=== PATIENT | female | born 1985 | race African-American/Black ===

== ENCOUNTER 2025-01-30 11:09 | Inpatient (IN) | payer MEDICAID, OTHER ==
[~2025-01-30] VITALS: Ht 149.9 cm; Wt 58.7 kg
[2025-01-30] MEDS: HYDROmorphone HCL 2 MG/ML VL/or syr IV ONE (11:45)
[2025-01-30] MEDS: SODIUM CHLORIDE 0.9% 1,000 ML IV ONE ×4 (11:46→16:26)
[2025-01-30] MEDS: LORazepam 2MG/ML-1ML VIAL IV ONE (11:46)
--- NOTE | 2025-01-30 11:46 | ED.PDOC ---
HPI (NEURO) HPI Comments 39 y/o F, with PMHx of epilepsy presents to the ED for CC of s/p seizure. Patient states, that she had x2 seizure episode back to back today (01/30/25). Patient reports, that she has lupus and is currently not on any medication; endorses seizure are common when having a flare-up. Patient denies blurred vision, oral trauma, or incontinence. Patient relays, she is compliant with Keppra bid. No other symptoms or modifying factors present at this time Chief Complaint: Seizure Time Seen by MD: 11:30 Primary Care Provider: NONE Reviewed Notes: Nurses Notes, Medications, Allergies Information Source: Patient Mode of Arrival: Ambulatory Severity: Moderate Dizziness/Weakness Severity: Does not affect activitie Headache Severity: None Timing: Minutes Duration: Minutes Prehospital treatment: None Seizure Quality: Mulitple Episodes Onset: At rest Circumstances: Spontaneous Symptoms: None Before: Normal During: Awake After: Normal Mentation History of: Seizure Disorder Modifying factors: Nothing Associated Signs and Symptoms: None Past Medical History Past Medical History (Other): Epilepsy 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 all REVIVAL CLERK Hx Family History Family History: Unknown Social History Smoker: Non-Smoker Alcohol: Denies ETOH Use Drugs: Denies Drug Use Lives In: Home Constitutional: denies: chills, diaphoresis, fatigue, fever, malaise, sweats, weakness, others EENTM: denies: blurred vision, double vision, ear bleeding, ear discharge, ear drainage, ear pain, ear ringing, eye pain, eye redness, hearing loss, mouth pain, mouth swelling, nasal discharge, nose bleeding, nose congestion, nose pain, photophobia, tearing, throat pain, throat swelling, voice changes, others Respiratory: denies: cough, hemoptysis, orthopnea, SOB at rest, shortness of breath, SOB with excertion, stridor, wheezing, others Cardiovascular: denies: chest pain, dizzy spells, diaphoresis, Dyspnea on exertion, edema, irregular heart beat, left arm pain, lightheadedness, palpitations, PND, syncope, others Gastrointestinal: denies: abdomen distended, abdominal pain, blood streaked bowels, constipated, diarrhea, dysphagia, difficulty swallowing, hematemesis, melena, nausea, poor appetite, poor fluid intake, rectal bleeding, rectal pain, vomiting, others Genitourinary: denies: abnormal vagina bleeding, burning, dyspareunia, dysuria, flank pain, frequency, hematuria, incontinence, pain, , vagina discharge, urgency, others Neurological: denies: dizziness, fainting, headache, left sided numbness, left sided weakness, numbness, paresthesia, pre-existing deficit, right sided numbness, right sided weakness, seizure, speech problems, tingling, tremors, weakness, others Musculoskeletal: reports: others (body pain); denies: back pain, gout, joint pain, joint swelling, muscle pain, muscle stiffness, neck pain Integumetry: denies: bruises, change in color, change in hair/nails, dryness, laceration, lesions, lumps, rash, wounds, others Allergic/Immunocompromised: denies: Difficulty Healing, Frequent Infections, Hives, Itching, others Hematologic/Lymphatic: denies: anemia, blood clots, easy bleeding, easy bruising, swollen glands, others Endocrine: denies: excessive hunger, excessive sweating, excessive thirst, excessive urination, flushing, intolerance to cold, intolerance to heat, unexplained weight gain, unexplained weight loss, others Psychiatric: denies: anxiety, bipolar disorder, depression, hopeless, panic di sorder, schizophrenia, sleepless, suicidal, others All Other Systems: Reviewed and Negative Physical Exam General Appearance: Moderate Distress HEENT: Normal ENT Inspection, Pharynx Normal, TMs Normal Neck: Full Range of Motion, Non-Tender, Normal, Normal Inspection Respiratory: Chest Non-Tender, Lungs Clear, No Accessory Muscle Use, No Respiratory Distress, Normal Breath Sounds Cardiovascular: No Edema, No JVD, No Murmur, No Gallop, Normal Peripheral Pulses, Regular Rate/Rhythm Breast Exam: Deferred Gastrointestinal: No Organomegaly, Non Tender, No Pulsatile Mass, Normal Bowel Sounds, Soft Genitalia: Deferred Pelvic: Deferred Rectal: Deferred Extremities: No calf tenderness, Normal capillary refill, Normal inspection, Normal range of motion, Non-tender, No pedal edema Musculoskeletal : Apperance: Normal Neurologic: Alert, logistics operations manager II-XII nml as Tested, No Motor Deficits, Normal Affect, Normal Mood, No Sensory Deficits Cerebellar Function: Normal Reflexes: Normal Skin: Dry, Normal Color, Warm Peripheral Pulses: 3+ Radial (R), 3+ Radial (L) Lymphatic: No Adenopathy Was a procedure done? Was a procedure done?: No Differential Diagnosis (SZ) Seizure: Psychogenic Seizure, Closed Head Injury, CVA/TIA, Epilepsy-Break Through, Epilepsy-Status X-Ray, Labs, Meds, VS Vital Signs Date Time Temp Pulse Resp B/P (MAP) Pulse Ox O2 Delivery O2 Flow Rate FiO2 01/30/25 13:15 Room Air* 0 21 01/30/25 13:15 97.9 92 16 147/103 (118) 100 97.9 01/30/25 11:45 92 16 147/103 01/30/25 11:15 98.8 90 16 124/74 (91) 100 98.8 Lab Test 01/30/25 12:05 01/30/25 11:26 Range/Units Reticulocyte Count (auto) 2.30 H 0.5-1.5 % Urine Color Light-yellow Yellow Urine Clarity Clear Clear Urine pH 6.5 5.0-9.0 Urine Specific [place] 1.021 1.001-1.035 Urine Protein Negative Negative Urine Ketones Negative Negative Urine Blood Negative Negative /uL Urine Nitrite Negative Negative Urine Bilirubin Negative Negative Urine Urobilinogen Normal Negative mg/dL Urine Leukocyte Esterase 3+ Negative /uL Urine RBC 7 0 - 4 /hpf Urine Microscopic WBC 40 H 0-5 /HPF Urine Squamous Epithelial Cells Few <5 /hpf Urine Bacteria Few H None Seen /hpf Urine Glucose 4+ H Normal mg/dL Current Medications Medications (Trade) Dose Ordered Sig/Teresita Route Start Time Stop Time Status Last Admin Hydromorphone HCl (Dilaudid Injection) 1 mg ONCE ONCE IV 01/30/25 11:45 01/30/25 11:46 DC 01/30/25 11:45 Lorazepam (Ativan Inj) 1 mg ONCE ONCE IV 01/30/25 11:45 01/30/25 11:46 DC 01/30/25 11:46 Sodium Chloride 1,000 ml @ 1,000 mls/hr Q1H ONCE IV 01/30/25 11:45 01/30/25 12:44 DC 01/30/25 11:46 Sodium Chloride 1,000 ml @ 1,000 mls/hr Q1H ONCE IV 01/30/25 12:30 01/30/25 13:29 DC 01/30/25 12:49 Patient alert. Complaining of generalized body pains. Vitals stable. Answering questions. Ambulating. Establish intravenous access. Was given fluids. Was given Ativan. Heart rate within normal limits. Saturation pristine on room air. No sign of any lupus. CT of the head was not ordered because her neurological examination was pristine. Good muscle strength. No sign of any trauma. Explained to the patient. Was told to follow up with her primary care physician. Was told to come back if there is any problem. Time of 1ST Reevaluation: 12:00 Reevaluation 1ST: Unchanged Patient Education/Counseling: Diagnosis, Treatment Family Education/Counseling: No Family Present Departure 1 Departure Time of Disposition: 12:12 Impression: Primary Impression: Sickle cell crisis Additional Impression: Dehydration Disposition: ADMITTED INPATIENT Admit to: Med Surg Condition: Guarded Critical Care Note Critical Care Time?: No Stability Stability form required: No Heart Score Heart Score: Heart Score Response (Comments) Value History N/A 0 EKG N/A 0 Age N/A 0 Risk Factors N/A 0 Troponin N/A 0 Total 0 I personally scribed for GUZMAN SILVA MD ([email or web address]) on 01/30/25 at 11:46. Electronically submitted by Karissa Monterroso ([email or web address]). GUZMAN SILVA MD January 30, 2025 11:46
[2025-01-30] MEDS: ONDANSETRON HCL 4 MG/2 ML VIAL IV ONE ×2 (11:49→16:19)
[2025-01-30 15:00] LABS: Urine Bacteria FEW /hpf (None Seen); Urine Blood Negative /uL (Negative); Urine Clarity Clear (Clear); Urine Color Light-Yellow (Yellow); Urine Protein, UAD Negative (Negative); Urine Specific Gravity 1.021 (1.001-1.035); Urine Squamous Epithelial Cell FEW /hpf (<5); Urine Urobilinogen Normal (Negative); Urine WBC 40 /HPF (0-5); Urine pH 6.5 (5.0-9.0)
[2025-01-30] MEDS ORDERED: LORazepam 2MG/ML-1ML VIAL IV PRN (16:00)
[2025-01-30] MEDS: SODIUM CHLORIDE 0.9% 1,000 ML IV SCH (16:00)
[2025-01-30] MEDS ORDERED: ACETAMINOPHEN 325 MG TAB PO PRN (16:00)
[2025-01-30] MEDS ORDERED: DOCUSATE SOD 100 MG CAP PO PRN (16:00)
[2025-01-30 16:09] LABS: Basophils # (auto) 0.1 10 ^3/uL (0-0.2); Basophils % (auto) 0.8 % (0.0-2.0); Eosinophils # (auto) 0.1 10 ^3/uL (0-0.8); Eosinophils % (auto) 0.7 % (0.0-7.0); Hematocrit 24.9 % (36.0-46.0); Hemoglobin 7.5 g/dL (12.2-16.2); Lymphocytes # (auto) 2.6 10 ^3/uL (0.4-5.4); Lymphocytes % (auto) 27.6 % (10.0-50.0); Mean Corpuscular Hemoglobin 21.6 pg (28.0-32.0); Mean Corpuscular Hgb Conc. 30.1 g/dL (32.0-36.0); Mean Corpuscular Volume 71.8 fL (80.0-100.0); Monocytes # (auto) 0.5 10 ^3/uL (0-1.3); Monocytes % (auto) 5.8 % (0.0-12.0); Neutrophils % (auto) 65.1 % (37.0-80.0); Nucleated Red Blood Cells % 0.1 %; Platelet Count (auto) 288 10^3/uL (140-450); Red Blood Cells 3.46 10^6/uL (4.0-5.20); Red Cell Distribution Width 19.6 % (11.8-14.3); White Blood Cell 9.3 10^3/uL (4.4-10.8)
[2025-01-30 16:19] LABS: Potassium 3.8 mmol/L (3.5-5.1); Sodium 143 mmol/L (136-145)
[2025-01-30 16:20] LABS: Anion Gap 8 (5-15); Carbon Dioxide 21 mmol/L (20-31)
[2025-01-30 16:22] LABS: Calcium 8.6 mg/dL (8.7-10.4); Chloride 114 mmol/L (98-107)
[2025-01-30 16:25] LABS: BUN/Creatinine Ratio 11.9 (10.0-20.0); Blood Urea Nitrogen 7 mg/dL (9-23); Glucose 201 mg/dL (74-106)
[2025-01-30] MEDS: MORPHINE SULFATE 4 MG/ML SYR/VIAL IV ONE (16:25)
--- NOTE | 2025-01-30 17:36 | DVHHP2 ---
History of Present Illness Reason for Visit: Seizure disorder History of Present Illness The patient is a 39-year-old female with past medical history of seizures and lupus presented to [facility] ED for evaluation of seizures activity. Patient reports that she had seizure episode 2 times back to back today, she is not on lupus medication at this time, admit seizure are common when having a flare up. Patient was seen and evaluated in the ED, laboratory data shows WBC 9.3, hemoglobin 7.5, hematocrit 24.9, platelets 288, Retic count 2.30, sodium 143, potassium 3.8, BUN 7, creatinine 0.59, glucose 201, calcium 8.6, urinalysis positive for urinary tract infection, blood pressure 147/93, heart rate 92, temperature 97.9 F, O2 saturation 99% on room air. Patient was started on IV antibiotic regimen Rocephin, please see medication orders section in the computer. On my assessment, patient denied chest pain, no headache, no dizziness, no diaphoresis, no seizures activity at this moment, no shortness of breath, no nausea, no vomiting, no fever, no chills. Patient was admitted for further evaluation and medical management. Past Medical History Epilepsy and lupus Past Surgical History Family History Reviewed, noncontributory to the management of this case. Past Social History The patient lives at home, denies smoking, alcohol or illicit drugs abuse. Review of Systems Constitutional: Yes: Weakness; No: Fever, Chills, Sweats, Malaise, Other Eyes: No: Pain, Vision change, Conjunctivae inflammation, Eyelid inflammation, Other, Redness ENT: No: Ear pain, Ear discharge, Nose pain, Nose discharge, Nose congestion, Mouth pain, Mouth swelling, Throat pain, Throat swelling, Other Respiratory: No: Cough, Dry, Shortness of breath, SOB with excertion, Wheezing, Hemoptysis, Pleuritic Pain, Sputum, Wheezing, Other Cardiovascular: No: Chest Pain, Palpitations, Orthopnea, Paroxysmal Noc. Dyspnea, Edema, Lt Headedness, Other Gastrointestinal: No: Nausea, Vomiting, Abdominal Pain, Diarrhea, Constipation, Melena, Hematochezia, Other Genitourinary: No Dysuria, No Frequency, No Incontinence, No Hematuria, No Retention, No Other Musculoskeletal: other (Body pain); No: neck pain, shoulder pain, arm pain, back pain, hand pain, leg pain, foot pain Skin: No: Rash, Lesions, Jaundice, Bruising, Other Neurological: Seizures; No: Weakness, Numbness, Incoordination, Change in speech, Confusion, Other Allergies: Coded Allergies: Penicillins (Verified Allergy, Intermediate, 01/30/25) Medications Current Medications Medications Dose Ordered Sig/Teresita Route Start Time Stop Time Status Last Admin Dose Admin Ceftriaxone Sodium 50 ml @ 100 mls/hr DAILY@09 IV 01/31/25 09:00 Lorazepam 1 mg Q2HP PRN IV 01/30/25 16:00 Sodium Chloride 1,000 ml @ 60 mls/hr [id number] IV 01/30/25 16:00 Acetaminophen/ Hydrocodone Bitart 1 tab Q4HP PRN PO 01/30/25 16:00 Ondansetron HCl 4 mg Q4HP PRN IV 01/30/25 16:00 Docusate Sodium 100 mg BIDPRN PRN PO 01/30/25 16:00 Acetaminophen 650 mg Q6HP PRN PO 01/30/25 16:00 Exam Vital Signs Vital Signs Date Time Temp Pulse Resp B/P (MAP) Pulse Ox O2 Delivery O2 Flow Rate FiO2 01/30/25 16:25 85 16 138/102 01/30/25 13:15 Room Air* 0 21 01/30/25 13:15 97.9 100 97.9 General Appearance: Alert, Oriented X3, Cooperative, No acute distress HEENT: Atraumatic, PERRLA, EOMI, Mucous membr. moist/pink Respiratory: Clear to auscultation, Normal air movement Cardiovascular: Regular rate, Normal S1, Normal S2, No murmurs Abdominal: Normal bowel sounds, Soft, No tenderness, No hepatospenomegaly, No masses Extremities: No clubbing, No cyanosis, No edema, Normal pulses, No tenderness/swelling Skin: No rashes, No breakdown, No significant lesion Neuro: Normal gait, Normal speech, Strength at 5/5 X4 ext, Normal tone, Sensation intact, Cranial nerves 3-12 NL, Reflexes 2+, Other (Generalized weakness) Psych/Mental Status: Mental status NL, Mood NL Labs/Xrays Labs Test 01/30/25 15:56 01/30/25 12:05 01/30/25 11:26 Range/Units White Blood Count 9.3 4.4-10.8 10^3/uL Red Blood Count 3.46 L 4.0-5.20 10^6/uL Hemoglobin 7.5 L 12.2-16.2 g/dL Hematocrit 24.9 L 36.0-46.0 % Mean Corpuscular Volume 71.8 L 80.0-100.0 fL Mean Corpuscular Hemoglobin 21.6 L 28.0-32.0 pg Mean Corpuscular Hemoglobin Concent 30.1 L 32.0-36.0 g/dL Red Cell Distribution Width 19.6 H 11.8-14.3 % Platelet Count 288 140-450 10^3/uL Mean Platelet Volume 8.4 6.9-10.8 fL Neutrophils (%) (Auto) 65.1 37.0-80.0 % Lymphocytes (%) (Auto) 27.6 10.0-50.0 % Monocytes (%) (Auto) 5.8 0.0-12.0 % Eosinophils (%) (Auto) 0.7 0.0-7.0 % Basophils (%) (Auto) 0.8 0.0-2.0 % Neutrophils # (Auto) 6.0 1.6-8.6 10 ^3/uL Lymphocytes # (Auto) 2.6 0.4-5.4 10 ^3/uL Monocytes # (Auto) 0.5 0-1.3 10 ^3/uL Eosinophils # (Auto) 0.1 0-0.8 10 ^3/uL Basophils # (Auto) 0.1 0-0.2 10 ^3/uL Nucleated Red Blood Cells 0.1 % Sodium Level 143 136-145 mmol/L Potassium Level 3.8 3.5-5.1 mmol/L Chloride Level 114 H 98-107 mmol/L Carbon Dioxide Level 21 20-31 mmol/L Anion Gap 8 5-15 Blood Urea Nitrogen 7 L 9-23 mg/dL Creatinine 0.59 0.550-1.02 mg/dL Glomerular Filtration Rate Calc 117 >90 mL/min BUN/Creatinine Ratio 11.9 10.0-20.0 Serum Glucose 201 H 74-106 mg/dL Calcium Level 8.6 L 8.7-10.4 mg/dL Reticulocyte Count (auto) 2.30 H 0.5-1.5 % Urine Color Light-yellow Yellow Urine Clarity Clear Clear Urine pH 6.5 5.0-9.0 Urine Specific [place] 1.021 1.001-1.035 Urine Protein Negative Negative Urine Ketones Negative Negative Urine Blood Negative Negative /uL Urine Nitrite Negative Negative Urine Bilirubin Negative Negative Urine Urobilinogen Normal Negative mg/dL Urine Leukocyte Esterase 3+ Negative /uL Urine RBC 7 0 - 4 /hpf Urine Microscopic WBC 40 H 0-5 /HPF Urine Squamous Epithelial Cells Few <5 /hpf Urine Bacteria Few H None Seen /hpf Urine Glucose 4+ H Normal mg/dL Head CT results pending Assessment/Plan Assessment/Plan Seizure disorder Urinary tract infection Anemia, unspecified Hyperglycemia Generalized weakness Plan 1. Admit to telemetry unit 2. Breathing treatment 3. Pain control management 4. IV antibiotic management 5. Management of fluids and electrolytes 6. Consultation for neurology 7. Diagnostic test-head CT 8. DVT prophylaxis on SCDs 9. Repeat labs CBC, CMP in a.m. 10. Home medication reviewed and reconciled 11. Continue with current medical management 12. Treatment plan discussed with patient and RN. Patient verbalized understanding. Plan discussed with: Patient, Other (RN) My Orders Orders - CASSIDY ZAVALA DNP Procedure Category Date Status Time Urine Bacterial GISELLE 01/30/25 Logged Culture 15:55 Ceftriaxone 1gm/50ml PHA 01/31/25 In Process D5w (Rocephin) 09:00 Lorazepam 2mg/Ml Inj PHA 01/30/25 In Process (Ativan Inj) 16:00 Allergies SINGH 01/30/25 In Process 15:55 Code Status CODE 01/30/25 Transmitted 15:55 2 Gm Sodium Diet DIET 01/30/25 Transmitted Dinner Sodium Chloride 0.9% PHA 01/30/25 In Process 16:00 Oxygen Per Hour RT 01/30/25 Transmitted 15:55 Hydrocodone-Acet PHA 01/30/25 In Process 5/325mg Tab ([place] 16:00 Ondansetron Hcl PHA 01/30/25 In Process (Zofran) 16:00 Docusate Sodium PHA 01/30/25 In Process Capsule (Colace 16:00 Fall Risk Precautions SINGH 01/30/[address] 15:55 Complete Blood Count LAB 01/31/25 Verified 04:00 Comprehensive LAB 01/31/25 Verified Metabolic Panel 04:00 Condition: Serious SINGH 01/30/25 In Process 15:55 Acetaminophen Tablet PHA 01/30/25 In Process (Tylenol Tablet) 16:00 Maintain Bed Rest SINGH 01/30/25 In Process 15:55 Sequential SINGH 01/30/25 In Process Compression Device Problem List: (1) Seizure disorder (2) Urinary tract infection (3) Hyperglycemia (4) Anemia, unspecified (5) Generalized weakness Date of Service: January 30, 2025 Billing Provider: CASSIDY ZAVALA DNP Common Visit Codes: [id number] INP/OBS CARE (HIGH) CASSIDY ZAVALA DNP January 30, 2025 17:35
[2025-01-30] MEDS ORDERED: NITROGLYCERIN 0.4 MG SL TAB SL PRN (17:45)
[2025-01-30] MEDS: cefTRIAXone 1GM/50ML D5W 50 ML IV ONE (17:49)
[2025-01-30] MEDS: levoFLOXacin 500MG 100 ML IV ONE (18:53)
[2025-01-30] MEDS: MORPHINE SULFATE INJ 2 MG/ml SYRG IV PRN (19:06)
[2025-01-30] MEDS: ONDANSETRON HCL 4 MG/2 ML VIAL IV PRN (19:06)
--- NOTE | 2025-01-30 19:22 | DVH ---
EXAM: CT HEAD WITHOUT CONTRAST INDICATION: Seizure disorder TECHNIQUE: CT of the head without intravenous contrast. Radiation Dose Information: CT Dose: CTDI volume is 52.75 mGy. Dose-length product is 828.67 mGy*cm The dose indicators for CT are the volume Computed Tomography (CT) Dose Index (CTDIvol) and the Dose Length Product (DLP), and are measured in units of mGy and mGy-cm, respectively. These indicators are not patient dose, but values generated from the CT scanner acquisition factors. The report includes radiation exposure data for exposures received during this examination. COMPARISON: None FINDINGS: There is no evidence of acute intracranial hemorrhage, extra-axial collection, mass effect, midline s hift, herniation or hydrocephalus. The ventricles, sulci and cisterns are age appropriate. The murray-white differentiation is intact. Patchy periventricular and subcortical white matter hypoattenuation is nonspecific but may be related to small vessel ischemic disease. The visualized paranasal sinuses and mastoid air cells are clear. The surrounding soft tissues and osseous structures are unremarkable. IMPRESSION: 1. No acute intracranial abnormality. 2. No intracranial mass or midline shift 3. No CT findings of territorial ischemia.
[2025-01-30] MEDS: HYDROcodone-ACET 5/325MG TAB PO PRN (19:47)
[2025-01-30] MEDS: levETIRAcetam 500 mg/100ml 100 ML IV SCH (21:28)
[2025-01-30] MEDS: MORPHINE SULFATE 4 MG/ML SYR/VIAL IV PRN (22:48)
[2025-01-30] MEDS ORDERED: CALCIUM CARB 500 MG CHEW TAB PO PRN (23:30)
[2025-01-31] VITALS (10 sets, daily range): BP systolic 112–141; BP diastolic 65–95; PULSE 71–89; RESP 14–95; TEMP 97.8–98.2; O2SAT 95–97
[2025-01-31] MEDS: KETOROLAC TROMETH 30 MG/ML 1ML VIAL IV ONE (01:28)
[2025-01-31 06:30] LABS: Basophils # (auto) 0 10 ^3/uL (0-0.2); Eosinophils # (auto) 0 10 ^3/uL (0-0.8); Hematocrit 21.6 % (36.0-46.0); Mean Corpuscular Hgb Conc. 30.8 g/dL (32.0-36.0); White Blood Cell 7.7 10^3/uL (4.4-10.8)
[2025-01-31 06:33] LABS: Basophils % (auto) 0.5 % (0.0-2.0); Eosinophils % (auto) 0.4 % (0.0-7.0); Lymphocytes # (auto) 1.1 10 ^3/uL (0.4-5.4); Lymphocytes % (auto) 14.8 % (10.0-50.0); Mean Corpuscular Hemoglobin 21.7 pg (28.0-32.0); Mean Corpuscular Volume 70.4 fL (80.0-100.0); Monocytes # (auto) 0.5 10 ^3/uL (0-1.3); Monocytes % (auto) 6.9 % (0.0-12.0); Neutrophils % (auto) 77.4 % (37.0-80.0); Nucleated Red Blood Cells % 0.1 %; Platelet Count (auto) 195 10^3/uL (140-450); Red Blood Cells 3.06 10^6/uL (4.0-5.20); Red Cell Distribution Width 19.2 % (11.8-14.3)
[2025-01-31 06:34] LABS: Alanine Aminotransferase 12 U/L (7-40); Albumin 3.7 g/dL (3.2-4.8); Alkaline Phosphatase 72 U/L (46-116); Anion Gap 8 (5-15); BUN/Creatinine Ratio 8.8 (10.0-20.0); Carbon Dioxide 26 mmol/L (20-31); Chloride 105 mmol/L (98-107); Potassium 3.8 mmol/L (3.5-5.1); Sodium 139 mmol/L (136-145); Total Protein 5.9 g/dL (5.7-8.2)
[2025-01-31 06:36] LABS: Aspartate Aminotransferase 11 U/L (13-40); Bilirubin, Total 0.3 mg/dL (0.2-1.0); Blood Urea Nitrogen 5 mg/dL (9-23); Calcium 8.6 mg/dL (8.7-10.4); Glucose 113 mg/dL (74-106)
[2025-01-31 06:52] LABS: Hemoglobin 6.6 g/dL (12.2-16.2)
[2025-01-31] MEDS: levoFLOXacin 500MG 100 ML IV SCH (08:06)
[2025-01-31] MEDS ORDERED: cefTRIAXone 1GM/50ML D5W 50 ML IV SCH (09:00)
[2025-01-31] MEDS: MORPHINE SULFATE 4 MG/ML SYR/VIAL IV PRN (11:32)
[2025-01-31 13:12] LABS: % Iron Saturation 3.9 % (15-50)
[2025-01-31] MEDS ORDERED: LEVE750T15 PO (14:02)
[2025-01-31] MEDS ORDERED: NITR-87 PO (15:41)
--- NOTE | 2025-01-31 15:46 | DVHDS2 ---
Discharge Summary Date of Admission January 30, 2025 at 17:33 Date of Discharge: January 31, 2025 Labs/Diagnostic Data: Laboratory Results Test 01/31/25 05:40 01/30/25 15:56 01/30/25 12:05 01/30/25 11:26 White Blood Count 7.7 10^3/uL (4.4-10.8) Red Blood Count 3.06 10^6/uL (4.0-5.20) Hemoglobin 6.6 g/dL (12.2-16.2) Hematocrit 21.6 % (36.0-46.0) Mean Corpuscular Volume 70.4 fL (80.0-100.0) Mean Corpuscular Hemoglobin 21.7 pg (28.0-32.0) Mean Corpuscular Hemoglobin Concent 30.8 g/dL (32.0-36.0) Red Cell Distribution Width 19.2 % (11.8-14.3) Platelet Count 195 10^3/uL (140-450) Mean Platelet Volume 8.4 fL (6.9-10.8) Neutrophils (%) (Auto) 77.4 % (37.0-80.0) Lymphocytes (%) (Auto) 14.8 % (10.0-50.0) Monocytes (%) (Auto) 6.9 % (0.0-12.0) Eosinophils (%) (Auto) 0.4 % (0.0-7.0) Basophils (%) (Auto) 0.5 % (0.0-2.0) Neutrophils # (Auto) 6.0 10 ^3/uL (1.6-8.6) Lymphocytes # (Auto) 1.1 10 ^3/uL (0.4-5.4) Monocytes # (Auto) 0.5 10 ^3/uL (0-1.3) Eosinophils # (Auto) 0 10 ^3/uL (0-0.8) Basophils # (Auto) 0 10 ^3/uL (0-0.2) Nucleated Red Blood Cells 0.1 % Sodium Level 139 mmol/L (136-145) Potassium Level 3.8 mmol/L (3.5-5.1) Chloride Level 105 mmol/L (98-107) Carbon Dioxide Level 26 mmol/L (20-31) Anion Gap 8 (5-15) Blood Urea Nitrogen 5 mg/dL (9-23) Creatinine 0.57 mg/dL (0.550-1.02) Glomerular Filtration Rate Calc 118 mL/min (>90) BUN/Creatinine Ratio 8.8 (10.0-20.0) Serum Glucose 113 mg/dL (74-106) Calcium Level 8.6 mg/dL (8.7-10.4) Iron Level 15 ug/dL (50-170) Total Iron Binding Capacity 384 ug/dL (250-425) Percent Iron Saturation 3.9 % (15-50) Total Bilirubin 0.3 mg/dL (0.2-1.0) Aspartate Amino Transferase (AST) 11 U/L (13-40) Alanine Aminotransferase (ALT) 12 U/L (7-40) Alkaline Phosphatase 72 U/L (46-116) Total Protein 5.9 g/dL (5.7-8.2) Albumin 3.7 g/dL (3.2-4.8) Hemoglobin A1c 7.2 % A1C (<5.7) Reticulocyte Count (auto) 2.30 % (0.5-1.5) Urine Color Light-yellow (Yellow) Urine Clarity Clear (Clear) Urine pH 6.5 (5.0-9.0) Urine Specific [place] 1.021 (1.001-1.035) Urine Protein Negative (Negative) Urine Ketones Negative (Negative) Urine Blood Negative /uL (Negative) Urine Nitrite Negative (Negative) Urine Bilirubin Negative (Negative) Urine Urobilinogen Normal mg/dL (Negative) Urine Leukocyte Esterase 3+ /uL (Negative) Urine RBC 7 /hpf (0 - 4) Urine Microscopic WBC 40 /HPF (0-5) Urine Squamous Epithelial Cells Few /hpf (<5) Urine Bacteria Few /hpf (None Seen) Urine Glucose 4+ mg/dL (Normal) Other Laboratory Tests 01/31/25 05:40 Brief Hx & Hospital Course: Final diagnoses: Seizure disorder Breakthrough seizures Urinary tract infection Anemia, Acute on chronic due to blood loss Blood loss due to menorrhagia Microcytic anemia due to chronic menorrhagia Hyperglycemia Generalized weakness Lupus She was admitted and given one unit RBCs for Hb of 6.6 Keppra was continued She takes Keppra 500 mg bid at home After the blood transfusion, she can go home Increase Keppra to 750 mg bid Macrobid 100 mg bid x5 days Follow up with PCP to get a referral to Rheumatology for Lupus management Condition at Discharge: Stable Final Diagnosis/Problems List Seizures Lupus Chronic anemia Discharge Disposition: Home SNF Discharge Will this Physician continue t: No Discharge Instruct/Medications Diet: Regular Activity: No Restrictions, As Tolerated Follow Up/Referral: PCP ANTHONY Medications: Increase Keppra to 750 mg bid Discharge Statement: "Patient was advised to return to the ER or call 911 if any headaches, dizziness, shortness of breath, chest pain, abdominal pain, bleeding, fevers, or worsening of medical condition. Patient was counseled about treatment plan, medications, possible side effects, patientverbalized understanding. All questions were answered to the best of my ability. This discharge took greater then 30 minutes in planning, reviewing documentation, counseling the patient, and discussing with other team members." ASSESSMENT ASSESSMENT Assessment Seizures Lupus Chronic anemia Date of Service: January 31, 2025 Billing Provider: NAINA DENIS MD Common Visit Codes: 52161-AHV/OBS DISCH DAY >30min NAINA DENIS MD January 31, 2025 15:46
== END 2025-01-31 12:27 | disposition left against medical advice (07) | DRG 53 ==
LOC: ER 11:09 → OVERFLOW 17:33
PROVIDERS: ADMIT Internal Medicine Geriatric Medicine; ATTEND Internal Medicine Geriatric Medicine
PROC: 30233N1 Transfusion of Nonautologous Red Blood Cells into Peripheral Vein, Percutaneous Approach (ICD-10-PCS; principal; 2025-01-31)
DX: G40.909 Epilepsy, unspecified, not intractable, without status epilepticus (principal); D50.9 Iron deficiency anemia, unspecified; E86.0 Dehydration; N39.0 Urinary tract infection, site not specified; R73.9 Hyperglycemia, unspecified; N92.0 Excessive and frequent menstruation with regular cycle; Z53.29 Procedure and treatment not carried out because of patient's decision for other reasons; Z79.899 Other long term (current) drug therapy; Z88.0 Allergy status to penicillin
CPT/HCPCS: 36415; 70450; 80048; 80053; 81001; 83036; 83540; 83550; 85025; 85045; 86850; 86900; 86901; 86920; 87086; 96361; 96374; 96375; G0378; J1885; J1956; J2405